=== PATIENT | male | born 1945 | race Caucasian/White ===

== ENCOUNTER 2021-03-25 07:29 | Outpatient (RCR) | payer MEDICARE, SELFPAY ==
--- NOTE | 2021-03-25 08:08 | PTOPEVAL ---
Thank you for referring Jaime Bundy to [facility].? The patient is scheduled to be seen for therapy? ____x/week for ___ weeks. Please review, sign, date and return this plan of care [place]. I agree with and certify that the following plan of care is medically necessary. Referring Physician Date Admitting Provider: Attending Provider: Tayo Enriquez MD Referring Provider: *PT Outpatient Evaluation Start: 03/25/21 06:53 Freq: Status: Active Protocol: Document 03/25/21 06:54 ACR (Rec: 03/25/21 08:06 ACR [id number]) Therapy Assessment Status Assessment Status Assessment Status Evaluation Evaluation Information Problem Diagnosis left low back pain Onset 03/01/21 Subjective Information Patient states that the back Query Text:As Reported By Patient/ pain has been around for Family awhile, but recently went to the doctor and got some predisone which has gradually been easing the pain. The patient reports that the pain increases with movement causing a sharp pain. Patient reports the pain doesn't stay long but it does interfere with working. He states the pain is worst in the morning, but by the end of the day the pain has gone away. In the past week he hasn't had the sharp pain, but has soreness through the left lower back. Patient did not get any imaging. He denies falls. 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
--- NOTE | 2021-04-10 07:34 | PTOPEVAL ---
Thank you for referring Jaime Bundy to [facility].? The patient is scheduled to be seen for therapy? ____x/week for ___ weeks. Please review, sign, date and return this plan of care [place]. I agree with and certify that the following plan of care is medically necessary. Referring Physician Date Admitting Provider: Attending Provider: Tayo Enriquez MD Referring Provider: *PT Outpatient Evaluation Start: 03/25/21 06:53 Freq: Status: Active Protocol: Document 04/10/21 06:55 ACR (Rec: 04/10/21 07:34 ACR [email or web address]) Therapy Assessment Status Assessment Status Assessment Status Discharge Evaluation Information Problem Diagnosis left low back pain Onset 03/01/21 Subjective Information Patient reports he has been Query Text:As Reported By Patient/ doing a lot better since Family beginning therapy. He states that he is able to do everything that he needs to do with minimal increase in pain . He states that he feels he is appropriate for discharge at this time. Pain Assessment Timing of Pain Assessment Timing of Pain Assessment Assessment Pain Scale Pain Scale Used Numeric (1 - 10) Self Report Pain Assessment Lower Back Reported Pain Level 0 Greatest Pain Intensity 2 Pain Score Pain Score 0: Self Report Interventions Used Interventions Used By Clinicians Activity or ADL's,Exercise Cervical and Lumbar ROM Lumbar ROM Lumbar Flexion Active [place] Query Text:Hands to: Lumbar Extension (0-40) 10 Query Text:Active in Degrees Lumbar Lateral Flexion Right (0-40) 20 Query Text:Active in Degrees Lumbar Lateral Flexion Left (0-40) 20 Query Text:Active in Degrees Lateral Rotation Right (0-45) 20 Query Text:Active in Degrees Lateral Rotation Left (0-45) 20 Query Text:Active in Degrees Lower Extremity Muscle Strength Testing Hip Strength Right Hip Flexion Strength 5 Normal Left Hip Flexion Strength 4+ Good + Knee Strength Right Knee Flexion Strength 5 Normal Knee Extension Strength 5 Normal Left Knee Flexion Strength 5 Normal Knee Extension Strength 5 Normal Muscle Length Testing Muscle Length Testing Piriformis w/Hip Flexion >90 Degrees (R) Moderate Tightness,(L) Severe Tightness Left Hamstring Length 50 Query Text:(90 - 90 Position) Right Hamstring Length 50 Query Text:(90 - 90 Position) Gait Assessment Gait Assessment Additio
== END 2021-04-10 11:38 | disposition home or self-care (01) ==
LOC: CHSPT 07:29
PROVIDERS: Visit Provider Family Medicine
DX: M54.5 Low back pain (principal)
CPT/HCPCS: 97014; 97110; 97140; 97161; G0283

== ENCOUNTER 2022-03-17 08:30 | Outpatient (CLI) | payer MEDICARE, OTHER, SELFPAY | END 2022-03-17 08:31 | disposition home or self-care (01) | LOC: CHSLAB 08:35 | PROVIDERS: PCP Family Medicine; Visit Provider Specialist | DX: C44.219 Basal cell carcinoma of skin of left ear and external auricular canal (principal) | CPT/HCPCS: 88305 ==

== ENCOUNTER 2023-10-12 12:58 | Outpatient (CLI) | payer MEDICARE, SELFPAY | END 2023-10-12 12:59 | disposition home or self-care (01) | LOC: CHSLAB 13:02 | PROVIDERS: PCP Family Medicine; Visit Provider Specialist | DX: C44.219 Basal cell carcinoma of skin of left ear and external auricular canal (principal) | CPT/HCPCS: 88305 ==

== ENCOUNTER 2024-11-29 09:47 | Outpatient (CLI) | payer MEDICARE, SELFPAY ==
--- OUTSIDE RECORDS SUMMARY | 2024-11-29 10:30 | XMS_ITS | Clinical Summary ---
Author Organization [facility] Address [address] [address] Care Team Providers Care Core Setter Name Role Phone Tayo Enriquez MD Primary Care Provider [phone] Tarun Rodríguez MD Unavailable [phone] Allergies Active Allergy Reactions Criticality Noted Date Comments Atorvastatin Flushing (skin) Low 07/28/2024 Hot flashes Iodinated Contrast Media Hives,Rash Medium 09/19/2015 Penicillins Itching Low 04/01/2022 Sulfa (Sulfonamide Antibiotics) Rash Medium 12/11 Medications multivitamin tablet Take 1 tablet by mouth daily Active meloxicam (MOBIC) 15 mg tablet 11/02/2022 Active Eliquis 5 mg tablet Take 1 tablet (5 mg total) by mouth 2 (two) times a day 07/07/2024 Active doxycycline hyclate 100 mg capsule Take 1 tablet/caps ule (100 mg total) by mouth daily 3 more days done 07/18/2024 07/07/2024 Active rosuvastatin (CRESTOR) 10 mg tablet Take 1 tablet (10 mg total) by mouth daily 30 tablet 11 07/14/2024 Active Xarelto 15 mg tablet 08/22/2024 Active Hospital, Clinic, or Other Facility Administered Medication Ordered Dose Route Frequency Start Date End Date Status perflutren protein-a (OPTISON) 3 mL in sodium chloride 0.9% 8 mL syringe 1 - 8 mL IV Once in imaging 05/11/2022 Active Active Problems Problem Noted Date Diagnosed Date Perianal pain 04/03/2022 Moderate obstructive sleep apnea 03/31/2022 Overview (01/13/2023): - PSG (07/09/22): AHI was 17 with O2 vinny of 82% - DME: [facility] Assessment & Plan (02/17/2023 4:23 PM CDT): 1. Chronic, well controlled 2. However patient is having issues with the pressure 3. Will decrease the pressure to 5-11 cm H2O in order to help him tolerate it more and increase the pressure in the future Assessment & Plan (01/13/2023 3:03 PM CDT): 1. Chronic, Poorly-controlled 2. Reviewed sleep study results 3. Discussed treatment options 4. Patient decided on CPAP therapy 5. Will place order Assessment & Plan (03/31/2022 3:53 PM CDT): 1. Chronic, poorly controlled 2. He has gained weight since his last sleep study 3. 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 Pelvic pain in male 09/18/2021 Mixed hyperlipidemia 01/03/2021 Coronary artery disease invo lving [place] coronary artery of [place] heart without angina pectoris 01/03/2021 Gastrointestinal hemorrhage associated with anorectal source 08/09/2018 Encounters Date Type Department Care Team Description 10/17/2024 Telephone [facility] Surgery [address] [facility] Medical Office Building [address] [place] [address] Jessica Mccullough PA 10/15/2024 7:51 AM CDT - 10/15/2024 11:59 PM CDT Hospital Encounter [facility] [address] [place] [address] Pelvic pain in male Discharge Disposition: Discharge to home or self care 09/27/2024 11:30 AM CDT Office Visit [facility] Surgery [facility] [place] [facility] Medical Office Building [address] [place] [address] Jessica Mccullough PA Pelvic pain in male (Primary Dx) from Last 3 Months Surgical History Surgery Date Site/Laterality Comments PARASTOMAL HERNIA REPAIR 08/21/2015 ABDOMINOPERINEAL PROCTOCOLECTOMY 07/25/2012 1. Abdominal perineal resection. 2. Local repair of parastomal hernia. 3. Debridement of pubic bone, please see Dr. Lin's operative note for details. LAPAROSCOPIC COLOSTOMY 11/04/2011 PROSTATECTOMY COLONOSCOPY Medical History Medical History Date Comments Prostate cancer (HCC) Prostate disorder Rectal pain Family History Medical History Relation Name Comments Aneurysm Father No Known Problems Mother Relation Name Status Comments Father (Age 53) Mother Social History Tobacco Use Types Packs/Day Years Used Date Smoking Tobacco: Never Smokeless Tobacco: Never Tobacco Cessation:Counseling Given: Not Answered Alcohol Use Standard Drinks/Week Comments No 0 (1 standard drink = 0.6 oz pur e alcohol) AUDIT-C Answer Date Recorded Q1: How often do you have a drink containing alc ohol? 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 Gender Identity Not on file Sexual Orientation Not on file Obstetrics History Last Filed Vital Signs Vital Sign Reading Time Taken Comments Blood Pressure 136/78 09/27/2024 11:23 AM CDT Pulse 67 09/27/2024 11:23 AM CDT Temperature 36.4 C (97.5 F) 04/02/2022 9:38 AM CDT Respiratory Rate 16 01/10/2024 11:28 AM CDT Oxygen Saturation 94% 09/27/2024 11:23 AM CDT Inhaled Oxygen Concentration - - Weight 108.9 kg (240 lb) 10/15/2024 7:59 AM CDT Height 185.4 cm (6' 1 ) 10/15/2024 7:59 AM CDT Body Mass Index 31.66 10/15/2024 7:59 AM CDT Plan of Treatment Health Maintenance Due Date Last Done Comments Depression Screening 1943 Fall Risk Assessment 1945 DTaP/Tdap/Td Vaccine (1 - Tdap) 1954 Hepatitis B Screening 1961 Pneumococcal vaccine 65+ (1 of 1 - PCV) 1993 Zoster Vaccine (1 of 2) 1993 Well Visit 65+ 2008 Covid-19 Vaccine ( - season) 2024, 09/24/2020 Influenza Vaccine (Season Ended) 2025 05/25/20 12 Goals Goal Patient Goal Type Associated Problems Recent Progress Patient-Stated? Author CCM Chronic Pain Care Plan Chronic Care Management No change(04/02 9:39 AM CDT) No Britany Caldwell, RN Note: Problem: Chronic Pain Goals: 1. Minimize further functional decline 2. Maximize quality of life 3. Control pain Strategies: - Activity/exercise program recommendation - Conservative stepwise pain medicine strategy with multi-disciplinary approach - Recommend healthy lifestyle strategies and compensatory methods as needed Procedures Procedure Name Priority Date/Time Associated Diagnosis Comments MRI PELVIS WO CONTRAST Schedule Routine, Read Routine (OP Routine) 10/15/2024 8:59 AM CDT Pelvic pain in male from Last 3 Months Results * MRI Pelvis WO Contrast (10/15/2024 8:59 AM CDT) Anatomical Region Laterality Modality Pelvis N/A Magnetic Resonan ce 10/16/2024 10:5 8 AM CDT Impressions 10/16/2024 2:49 PM CDT No explanation for the patient's pelvic pain. Normal bone marrow signal. No abnormality within the lumbosacral plexus identified. Dictated by: Miky Collado M.D. The radiology attending physician has personally reviewed this study, and had reviewed and/or edited this written report and agrees with it. Electronically signed by: Madi De Leon M.D. 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 Evaluate for mass and nerve compression. TECHNIQUE: MR imaging of the pelvis was performed without contrast. COMPARISON: CT pelvis without contrast from 09/18/2021. MR pelvis with and without contrast from 05/18/2012. FINDINGS: Reproductive organs: Status post prostatectomy. Fiducial markers within the prostate. Bladder: The bladder is trabeculated, likely sequela of prior bladder outlet obstruction. Bowel: Left lower quadrant end colostomy. Lymph nodes: Normal Vasculature: Normal Bones: Normal marrow signal. Other findings: No ascites. Status post left lower quadrant hernia repair. Tiny left inguinal hernia. No evidence of lumbosacral nerve root compression. Unchanged T1 hypointensity in the right corpus cavernosum, which can be seen with Peyronie disease. 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 Evaluate for mass and nerve compression. TECHNIQUE: MR imaging of the pelvis was performed without contrast. COMPARISON: CT pelvis without contrast from 09/18/2021. MR pelvis with and without contrast from 05/18/2012. FINDINGS: Reproductive organs: Status post prostatectomy. Fiducial markers within the prostate. Bladder: The bladder is trabeculated, likely sequela of prior bladder outlet obstruction. Bowel: Left lower quadrant end colostomy. Lymph nodes: Normal Vasculature: Normal Bones: Normal marrow signal. Other findings: No ascites. Status post left lower quadrant hernia repair. Tiny left inguinal hernia. No evidence of lumbosacral nerve root compression. Unchanged T1 hypointensity in the right corpus cavernosum, which can be seen with Peyronie disease. IMPRESSION: No explanation for the patient's pelvic pain. Normal bone marrow signal. No abnormality within the lumbosacral plexus identified. Dictated by: Miky Collado M.D. The radiology attending physician has personally reviewed this study, and had reviewed and/or edited this written report and agrees with it. Electronically signed by: Madi De Leon M.D. Jessica [facility] MRI PROCEDURES Final R esult from Last 3 Months Insurance MEDICARE [facility] SENIOR SUPPLEMENT MEDICARE AET SENIOR SUPPLEMENT MEDICARE [facility] MEDICARE AETNA SENIOR SUPPLEMENT Care Teams Core Setter Relationship Specialty Start Date End Date Tayo Enriquez MD [address] [address] PCP - General 09/11/16 Tarun Rodríguez MD [address] [facility] [phone] [place] [address] Surgeon Colon and Rectal Surgery 09/18/21
--- OUTSIDE RECORDS SUMMARY | 2024-11-29 10:30 | XMS_ITS | Clinical Summary ---
Author Organization [email or web address] Address [address] [place] [address] Care Team Providers Care Break Up Worker Name Role Phone Tayo Enriquez MD Primary Care Provider [phone] Allergies No known active allergies Medications aspirin (ECOTRIN EC) 81 mg Tablet, Delayed Release (E.C.) Take 81 mg by mouth daily. Active glucosamine-cho ndroitin (ARTHX DS) 500-400 mg Capsule Take 1 Capsule by mouth daily. Active multivitamin (DAILY-NATALEE) tablet Take 1 Tablet by mouth daily. Active omega-3 acid ethyl esters (OMACOR,LOVAZA) 1 gram Capsule Take 4 Grams by mouth daily. Active cholecalciferol , Vitamin D3, (VITAMIN D3) 1,000 unit Capsule Take 1,000 Units by mouth daily. Active Social History Tobacco Use Types Packs/Day Years Used Date Smoking Tobacco: Never Smokeless Tobacco: Never Alcohol Use Standard Drinks/Week Comments No 0 (1 standard drink = 0.6 oz pur e alcohol) Sex and Gender Information Value Date Recorded Sex Assigned at Not on file Legal Sex Male 9:07 AM MINING SPECULATOR Gender Identity Not on file Sexual Orientation Not on file Last Filed Vital Signs Vital Sign Reading Time Taken Comments Blood Pressure 119/73 09/07/2018 1:00 PM MINING SPECULATOR Pulse 62 09/07/2018 1:00 PM MINING SPECULATOR Temperature 36.6 C (97.9 F) 09/07/2018 1:00 PM MINING SPECULATOR Respiratory Rate 16 09/07/2018 1:00 PM MINING SPECULATOR Oxygen Saturation - - Inhaled Oxygen Concentration - - Weight 109.6 kg (241 lb 9.6 oz) 09/07/2018 1:00 PM MINING SPECULATOR Height 185.4 cm (6' 1 ) 09/07/2018 1:00 PM MINING SPECULATOR Body Mass Index 31.88 09/07/2018 1:00 PM MINING SPECULATOR Plan of Treatment Health Maintenance Due Date Last Done Comments DTAP/TDAP/TD VACCINES (1 - Tdap) 1962 PNEUMOCOCCAL VACCINE 50+ YEARS (1 of 1 - PCV) 04/20/19 93 ZOSTER VACCINE (1 of 2) 1993 RSV VACCINE (60+ or ) (1 - 1-dose 75+ series) 2018 INFLUENZA VACCINE (#1) 2024 Insurance MEDICARE PART A AND B [employer] Care Teams Break Up Worker Relationship Specialty Start Date End Date Tayo Enriquez MD [address] [place] [address] [place] [phone] PCP - General Family Practice 08/25/18
--- OUTSIDE RECORDS SUMMARY | 2024-11-29 10:30 | XMS_ITS | Clinical Summary ---
Author Organization [facility] Address [address] [place] [address] Care Team Providers Care Flagman Name Role Phone Tayo Enriquez MD Primary Care Provider [phone] Source Comments [facility] [employer],non-owned Affiliates and Associated Physician Practices is amultiple site organization consisting of ambulatory clinics and hospital sitesin [place], [place], [place] and [place]. This disclosure is being madepursuant to the Care Everywhere program and may not contain all information available regarding this patient. Last updated 18.[facility] [employer] Medications * Be aware that medications may not be up to date on this document. Alwaysverify current medications with the patient. aspirin (ASPIRIN) 81 MG tablet Take 81 mg by mouth DAILY. 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 Gender Identity Not on file Sexual Orientation Not on file Last Filed Vital Signs Vital Sign Reading Time Taken Comments Blood Pressure - - Pulse - - Temperature - - Respiratory Rate - - Oxygen Saturation - - Inhaled Oxygen Concentration - - Weight 108.9 kg (240 lb) 03/18/2017 1:45 PM CDT Height 185.4 cm (6' 1 ) 03/18/2017 1:45 PM CDT Body Mass Index 31.66 03/18/2017 1:45 PM CDT Plan of Treatment Health Maintenance Due Date Last Done Comments DTAP/TDAP/TD VACCINES (1 - Tdap) 1962 PNEUMOCOCCAL VACCINE 50+ (1 of 1 - PCV) 1993 ZOSTER VACCINE (1 of 2) 1993 Respiratory Syncytial Virus (RSV) Vaccine Pt: or over 60 yrs (1 - 1-dose 75+ series) 2018 COVID-19 VACCINE (2023-2 5 season) 2024 DEPRESSION SCREENING 07/12/2024 INFLUENZA VACCINE (Season Ended) 2025 HEPATITIS B VACCINE Aged Out No longe r eligible based on patient's age to complete this topic HIB VACCINE Aged Out No longer eligi ble based on patient's age to complete this topic HPV VACCINE Aged Out No longer eligi ble based on patient's age to complete this topic MENINGOCOCCAL (Group B) VACC INE SHARED DECISION-MAKING Aged Out No longer eligibl e based on patient's age to complete this topic MENINGOCOCCAL GROUPS A/C/Y/W VACCINE Aged Out No longer eligible b ased on patient's age to complete this topic Care Teams Flagman Relationship Specialty Start Date End Date Tayo Enriquez MD [address] [place] [address] PCP - General 12/08/16
--- OUTSIDE RECORDS SUMMARY | 2024-11-29 10:30 | XMS_ITS | Referral Summary ---
Author Organization [facility] Address [address] [place] [address] Care Team Providers Care Provider Relations Representative Name Role Phone Tayo Enriquez MD Primary Care Provider [phone] Tarun Rodríguez MD Unavailable [phone] Encounters Date Type Department Care Team Description 10/17/2024 Telephone [facility] Surgery [address] [place] [address] Medical Office Building [address] [place] [address] Jessica Mccullough PA 10/15/2024 7:51 AM CDT - 10/15/2024 11:59 PM CDT Hospital Encounter [facility] Imaging [address] [place] [id number] Pelvic pain in male Discharge Disposition: Discharge to home or self care 09/27/2024 11:30 AM CDT Office Visit [facility] Surgery [address] [place] [address] Medical Office Building [address] [place] [address] Jessica Mccullough PA Pelvic pain in male (Primary Dx) from Last 3 Months Allergies Active Allergy Reactions Criticality Noted Date [...] with O2 vinny of 82% - DME: [facility] Assessment & Plan (02/17/2023 4:23 PM CDT): [...] hyperlipidemia 01/03/2021 Coronary artery disease invo lving [place] coronary artery of [place] heart without angina pectoris 01/03/2021 Gastrointestinal hemorrhage associated with anorectal source 08/09/2018 Social History Tobacco Use Types Packs/Day Years [...] on file 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 Gender Identity Not on file Sexual Orientation [...] 10/15/2024 7:59 AM CDT Plan of Treatment Not on file Goals Goal Patient Goal Type Associated Problems [...] esult from Last 3 Months Insurance MEDICARE [facility] SENIOR SUPPLEMENT MEDICARE [facility] SENIOR SUPPLEMENT MEDICARE AET SENIOR SUPPLEMENT MEDICARE AET[employer] SENIOR SUPPLEMENT Care Teams Provider Relations Representative Relationship Specialty Start Date End Date Tayo Enriquez MD [address] [place] [address] [place] [address] PCP - General 09/11/16 Tarun Rodríguez MD [address] [facility] [phone] [place] [address] Surgeon Colon and Rectal Surgery 09/18/21
--- OUTSIDE RECORDS SUMMARY | 2024-11-29 10:30 | XMS_ITS | Encounter Summary ---
Author Organization [facility] Address [address] [place] [address] Phone Care Team Providers Care Harvest Manager Name Role Phone Tayo Enriquez MD Primary Care Provider [phone] Tarun Rodríguez MD Unavailable [phone] Radha Soto DPT Unavailable [phone] Encounter Details Date Type Department Care Team (Late st Contact Info) Description 04/03/2019 Telephone [facility] Cardiology [address] [facility] 8th [place] [address] [place] [id number] Donald Lopez MD [address] [place] [address] Social History Tobacco Use Types Packs/Day Years Used Date Smoking Tobacco: Never Smokeless Tobacco: Never Alcohol Use Standard Drinks/Week Comments No 0 (1 standard drink = 0.6 oz pur e alcohol) Sex and Gender Information Value Date Recorded Sex Assigned at Not on file Legal Sex Male 10:50 AM FLAT BED KNITTER Gender Identity Not on file Sexual Orientation Not on file documented as of this encounter Plan of Treatment Not on file documented as of this encounter Visit Diagnoses Not on filedocumented in this encounter Care Teams Harvest Manager Relationship Specialty Start Date End Date Tayo Enriquez MD [address] [place] [address] PCP - General 09/11/16 Tarun Rodríguez MD [address] [facility] [place] [phone] [place] [address] Surgeon Colon and Rectal Surgery 09/18/21 Radha Soto, ELINOR [address] [place], [place] [id number] Physical Therapist Physical Therapy 01/28/22 06/24/23 documented as of this encounter
[2024-11-30 20:08] LABS: Lupus dRVVT Screen 40 sec (< OR = 45); PTT-LA Screen 35 sec (< OR = 40)
[2024-12-01 13:28] LABS: Homocysteine 9.8 umol/L (< or = 15.2)
[2024-12-02 10:33] LABS: Protein S Antigen, Free 106 % normal (57-171); Protein S Antigen, Total 121 % normal (70-140)
[2024-12-03 01:59] LABS: APC Ratio 1.6 ratio (>=2.1)
[2024-12-03 15:13] LABS: Anti Cardio Antibody IgM 8.9 MPL-U/mL; Anti Cardiolipin Antibody IgG <2.0 GPL-U/mL
[2024-12-03 19:54] LABS: Antithrombin III Activity 99 % normal (80-135)
[2024-12-03 20:33] LABS: Factor VIII Activity 144 % normal (50-180)
== END 2024-11-29 09:48 | disposition home or self-care (01) ==
LOC: CHSLAB 09:51
PROVIDERS: PCP Family Medicine; Visit Provider Internal Medicine Hematology
DX: I82.409 Acute embolism and thrombosis of unspecified deep veins of unspecified lower extremity (principal)
CPT/HCPCS: 36415; 81240; 81291; 83090; 85240; 85300; 85303; 85305; 85306; 85307; 85613; 85730; 86146; 86147